=== PATIENT | male | born 1985 | race Caucasian/White ===

== ENCOUNTER 2018-02-24 13:02 | Emergency (ER) | payer SELFPAY ==
[~2018-02-24] VITALS: Ht 172.7 cm; Wt 70.0 kg
[2018-02-24 13:27] VITALS: BP 154/108
== END 2018-02-24 14:40 | disposition left against medical advice (07) ==
LOC: ER 13:34
DX: R56.9 Unspecified convulsions (principal)
CPT/HCPCS: 93005; 99283

== ENCOUNTER 2019-02-27 17:28 | Emergency (ER) | payer SELFPAY ==
[~2019-02-27] VITALS: Ht 170.2 cm; Wt 75.0 kg
[2019-02-27 17:44] VITALS: BP 154/97
== END 2019-02-28 01:00 | disposition left against medical advice (07) ==
LOC: ER 17:28
DX: Z53.21 Procedure and treatment not carried out due to patient leaving prior to being seen by health care provider (principal)

== ENCOUNTER 2021-11-25 14:19 | Emergency (ER) | payer OTHER ==
[~2021-11-25] VITALS: Ht 177.8 cm; Wt 77.5 kg
[2021-11-25 14:26] VITALS: BP 150/100
[2021-11-25 15:19] LABS: CHLORIDE 110 mEq/L (98-107)
[2021-11-25 15:45] LABS: EOSINOPHILS % 1.6 % (0.0-5.0); HEMATOCRIT. 44.1 % (42.0-52.0); HEMOGLOBIN. 14.8 g/dL (14.0-18.0); LYMPHOCYTES % 21.8 % (20.0-50.0); MEAN CORPUSCULAR HEMOGLOBIN 33.3 pg (28.0-32.0); MEAN CORPUSCULAR VOLUME 99.1 fL (80.0-94.0); MEAN PLATELET VOLUME 6.8 fl (7.4-10.4); MONOCYTES % 8.4 % (2.0-8.0); NEUTROPHILS % 66.2 % (40.0-76.0); PLATELET 136 x1000/uL (130-400); RED BLOOD CELL COUNT 4.45 mill/uL (4.7-6.1); RED CELL DISTRIBUTION WIDTH 16.1 % (11.6-14.6)
[2021-11-25 16:51] LABS: ETHANOL BLOOD 487 mg/dL
[2021-11-25] MEDS ORDERED: MORPHINE SULFATE 4 MG/ML CPJ (NOT FOR IM USE) IV STA (17:03)
[2021-11-25] MEDS ORDERED: SODIUM CHLORIDE 0.9% 1,000 ML IV ONE (17:15)
== END 2021-11-25 17:25 | disposition left against medical advice (07) ==
LOC: ER 14:36
DX: R10.33 Periumbilical pain (principal); R00.0 Tachycardia, unspecified; Z87.828 Personal history of other (healed) physical injury and trauma
CPT/HCPCS: 36415; 80053; 80320; 83690; 85025; 99283; J7030; G0480

== ENCOUNTER 2022-07-28 19:53 | Emergency (ER) | payer MEDICAID, OTHER ==
[~2022-07-28] VITALS: Ht 167.6 cm; Wt 66.0 kg
[2022-07-28 23:15] LABS: BASOPHILS % 2.4 % (0.0-2.0); EOSINOPHILS % 5.3 % (0.0-5.0); HEMATOCRIT. 26.1 % (42.0-52.0); HEMOGLOBIN. 8.9 g/dL (14.0-18.0); MEAN CORPUSCULAR HEMOGLOBIN 31.9 pg (28.0-32.0); MEAN CORPUSCULAR VOLUME 94.2 fL (80.0-94.0); MEAN PLATELET VOLUME 5.4 fl (7.4-10.4); MONOCYTES % 7.2 % (2.0-8.0); NEUTROPHILS % 56.1 % (40.0-76.0); PLATELET 802 x1000/uL (130-400); RED BLOOD CELL COUNT 2.77 mill/uL (4.7-6.1); RED CELL DISTRIBUTION WIDTH 17.1 % (11.6-14.6)
[2022-07-28 23:23] LABS: CHLORIDE 110 mEq/L (98-107)
[2022-07-28 23:31] LABS: CLARITY URINE CLEAR (CLEAR); COLOR URINE YELLOW (YELLOW); KETONES URINE NEGATIVE (NEGATIVE); LEUKOCYTE ESTERASE URINE NEGATIVE (NEGATIVE); NITRITE URINE NEGATIVE (NEGATIVE); OCCULT BLOOD URINE NEGATIVE (NEGATIVE); PROTEIN URINE NEGATIVE (NEGATIVE); SPECIFIC GRAVITY URINE 1.013 (1.005-1.030); UROBILINOGEN URINE 0.2 E.U./dL (0.2-1.0)
[2022-07-28 23:32] LABS: ETHANOL BLOOD 168 mg/dL
[2022-07-28 23:46] LABS: *AMPHETAMINES SCREEN URINE NEGATIVE (NEGATIVE); *BARBITURATES SCREEN URINE NEGATIVE (NEGATIVE); *BENZODIAZEPINES SCREEN URINE NEGATIVE (NEGATIVE); *COCAINE SCREEN URINE NEGATIVE (NEGATIVE); CANNABINOID URINE SCREEN PRESUMTIVE POSITIVE (NEGATIVE); METHADONE URINE SCREEN NEGATIVE (NEGATIVE); OPIATES URINE SCREEN NEGATIVE (NEGATIVE); PHENCYCLIDINE URINE SCREEN NEGATIVE (NEGATIVE)
[2022-07-29 11:18] VITALS: BP 121/71
== END 2022-07-29 11:22 | disposition home or self-care (01) ==
LOC: ER 19:53
DX: R45.851 Suicidal ideations (principal); D64.9 Anemia, unspecified; F12.10 Cannabis abuse, uncomplicated; F15.10 Other stimulant abuse, uncomplicated; Z20.822 Contact with and (suspected) exposure to COVID-19
CPT/HCPCS: 36415; 80053; 80305; 80307; 80320; 80329; 81003; 85025; 99285; C9803; U0003; U0005; G0480